=== PATIENT | male | born 1960 | race Caucasian/White ===

== ENCOUNTER 2023-08-12 10:08 | Outpatient (CLI) | payer MEDICARE, SELFPAY | END 2023-08-12 10:09 | disposition home or self-care (01) | PROVIDERS: PCP Family Medicine; Visit Provider Family Medicine | DX: E78.5 Hyperlipidemia, unspecified (principal); Z83.3 Family history of diabetes mellitus; Z13.1 Encounter for screening for diabetes mellitus; Z12.5 Encounter for screening for malignant neoplasm of prostate | CPT/HCPCS: 80048; 80061; G0103 ==

== ENCOUNTER 2024-08-24 14:25 | Outpatient (CLI) | payer MEDICARE, SELFPAY | END 2024-08-24 14:26 | disposition home or self-care (01) | PROVIDERS: PCP Family Medicine; Visit Provider Family Medicine | DX: E78.2 Mixed hyperlipidemia (principal) | CPT/HCPCS: 80048; 80061 ==